=== PATIENT | male | born 1975 ===

== ENCOUNTER 2017-01-24 13:30 | Outpatient (CLI) | payer BC | END 2017-01-24 13:31 | disposition home or self-care (01) | DX: R10.84 Generalized abdominal pain (principal) ==

== ENCOUNTER 2020-09-04 14:22 | Outpatient (CLI) | payer BC, OTHER | END 2020-09-04 14:23 | disposition home or self-care (01) | LOC: LAB 14:22 | PROVIDERS: ATTEND Registered Nurse | DX: Z20.828 Contact with and (suspected) exposure to other viral communicable diseases (principal) ==